=== PATIENT | male | born 1945 | race Caucasian/White ===

== ENCOUNTER 2020-06-19 13:06 | Emergency (ER) | payer OTHER, MEDICAID ==
[~2020-06-19] VITALS: Ht 160 cm; Wt 49.9 kg
[2020-06-19 13:16] VITALS: BP 128/63
--- NOTE | 2020-06-19 13:58 | NUR ---
74 Y/O MALE FROM [facility] STATES HE CANNOT SLEEP AND HAS NOT BEEN ABLE TO FOR 3 DAYS. DENIES PAIN.
--- NOTE | 2020-06-19 14:00 | NUR ---
DR SOTO AT BEDSIDE EXAMINING PATIENT
--- NOTE | 2020-06-19 15:30 | NUR ---
PER PATRICIO, DOMAIN ARCHITECT PT WILL BE PICKED UP AT 1830 TODAY
--- NOTE | 2020-06-19 17:02 | NUR ---
ATTEMPTED TO CALL SON FOR [facility] CONCIERGE OF PATIENT, NO ANSWER AT THIS TIME. UNABLE TO LEAVE VOICEMAIL.
--- NOTE | 2020-06-19 17:22 | NUR ---
PT AWAKE AND ALERT, BREATHING EVEN AND UNLBAORED, NO APPARENT DISTRESS. WILL CONTINUE TO MONITOR.
[2020-06-19 19:08] VITALS: BP 128/63
--- NOTE | 2020-06-19 19:08 | NUR ---
Patient discharged with v/s stable. Written and verbal after care instructions ABOUT INSOMINIA given and explained. Patient verbalized understanding. Ambulatory with steady gait. All questions addressed prior to discharge. Advised to follow up with PMD.
== END 2020-06-19 19:08 | disposition home or self-care (01) ==
LOC: MED 13:06
DX: G47.00 Insomnia, unspecified (principal); F03.90 Unspecified dementia, unspecified severity, without behavioral disturbance, psychotic disturbance, mood disturbance, and anxiety
CPT/HCPCS: 70450; 99284

== ENCOUNTER 2020-06-29 11:28 | Emergency (ER) | payer OTHER, MEDICAID ==
[~2020-06-29] VITALS: Ht 165.1 cm; Wt 54.4 kg
--- NOTE | 2020-06-29 11:28 | NUR ---
Patient LOGAN NEVES from [facility], transferred to bed 5. RN evaluating the patient at bedside.
--- NOTE | 2020-06-29 11:30 | NUR ---
[place] PD officer is evaluating the patient for a 5150 hold.
--- NOTE | 2020-06-29 11:38 | NUR ---
PT TAKEN TO BED 5, ROOM STRIPPED AND PT CHANGED INTO GOWN, PB LIST MADE AND GIVEN TO SECURITY.
[2020-06-29 11:40] VITALS: BP 118/68
--- NOTE | 2020-06-29 11:42 | NUR ---
Dr. Niño is evaluating the patient at bedside.
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
[2020-06-29 12:21] LABS: BASOPHILS % (AUTO) 0.7 % (0.0-2.0); EOSINOPHILS # (AUTO) 0.2 K/uL (0-0.4); EOSINOPHILS % (AUTO) 5.2 % (0.0-4.0); HEMATOCRIT 36.4 % (36-52); HEMOGLOBIN 12.1 g/dL (12.0-18.0); LYMPHOCYTES # (AUTO) 0.7 K/uL (2.0-11.5); LYMPHOCYTES % (AUTO) 18.1 % (20.5-51.1); MEAN CORPUSCULAR HEMOGLOBIN 31 pg (27-31); MEAN CORPUSCULAR HGB CONC 33 g/dL (33-37); MONOCYTES # (AUTO) 0.5 K/uL (0.8-1.0); MONOCYTES % (AUTO) 12.1 % (1.7-9.3); NEUTROPHILS # (AUTO) 2.4 K/uL (1.8-7.7); NEUTROPHILS % (AUTO) 63.9 % (42.2-75.2); PLATELET COUNT (AUTO) 124 K/uL (140-450); RED BLOOD CELL COUNT(AUTO) 3.96 MIL/uL (4.20-6.10); RED CELL DISTRIBUTION WIDTH 16.1 % (11.6-13.7); WHITE BLOOD COUNT (AUTO) 3.8 K/uL (4.8-10.8)
[2020-06-29 12:38] LABS: ACETAMINOPHEN < 0.5 ug/ml (10-30); ALBUMIN 3.4 g/dL (3.4-5.0); ANION GAP 7.8 (8-16); ASPARTATE AMINOTRANSFERASE 20 U/L (15-37); CARBON DIOXIDE 32.1 mmol/L (21-32); CHLORIDE 106 mmol/L (98-107); GLUCOSE 85 mg/dL (74-106); POTASSIUM 3.9 mmol/L (3.5-5.1); SALICYLATE < 2.8 mg/dL (2.8-20.0); SODIUM SERUM 142 mmol/L (136-145); TOTAL BILIRUBIN 0.4 mg/dL (0.0-1.0); UREA NITROGEN, BLOOD 11 mg/dL (7-18)
--- NOTE | 2020-06-29 13:08 | NUR ---
MONA FROM [facility] [employer] - [phone]. SHE STATES THAT SHE WILL HELP WITH DISCHARGE [facility]/ [facility] - AUTHORIZATION [id number]
[2020-06-29 13:59] LABS: APPEARANCE,URINE HAZY (CLEAR); BILIRUBIN,URINE NEGATIVE (NEGATIVE); BLOOD, URINE NEGATIVE (NEGATIVE); COLOR,URINE YELLOW (YELLOW); LEUKOCYTE ESTERASE ,URINE 1+ (NEGATIVE); NITRITE, URINE POSITIVE (NEGATIVE); PH,URINE 6.5 (5.0-9.0); UGLUCOSE NEGATIVE (NEGATIVE)
[2020-06-29 14:21] LABS: BARBITURATE, URINE NEGATIVE ng/ml (NEG <=200); BENZODIAZEPINE, URINE POSITIVE ng/mL (NEG <=200); CANNABINOID, URINE NEGATIVE ng/mL (NEG <=50); COCAINE, URINE NEGATIVE ng/mL (NEG <=300); OPIATE, URINE NEGATIVE ng/mL (NEG <=2000); PHENCYCLIDINE SCREEN,URINE NEGATIVE ng/mL (NEG <=25)
--- NOTE | 2020-06-29 14:30 | NUR ---
PT ALERT AND AWAKE, BREATHING EVEN AND UNLABORED. NO DISTRESS NOTED. SITTER REMAINS AT BEDSIDE.
[2020-06-29 14:54] LABS: RBC,URINE 0-5 /HPF (0-5)
--- NOTE | 2020-06-29 16:30 | NUR ---
PT ALERT AND AWAKE, BREATHING EVEN AND UNLABORED. NO DISTRESS NOTED. SITTER REMAINS AT BEDSIDE.
--- NOTE | 2020-06-29 18:30 | NUR ---
PT ALERT AND AWAKE, BREATHING EVEN AND UNLABORED. NO DISTRESS NOTED. SITTER REMAINS AT BEDSIDE.
[2020-06-29 19:39] VITALS: BP 118/68
--- NOTE | 2020-06-29 19:39 | NUR ---
Patient discharged with v/s stable. Written and verbal after care instructions about dementia caregiver guide given and explained. Patient verbalized understanding. Ambulance Transport with to [facility]. All questions addressed prior to discharge. Advised to follow up with PMD.
== END 2020-06-29 19:39 | disposition home or self-care (01) ==
LOC: MED 11:28
DX: F29 Unspecified psychosis not due to a substance or known physiological condition (principal); R45.1 Restlessness and agitation; F03.90 Unspecified dementia, unspecified severity, without behavioral disturbance, psychotic disturbance, mood disturbance, and anxiety
CPT/HCPCS: 36415; 80053; 80305; 81001; 85025; 87086; 99285; G0480; G0482